=== PATIENT | male | born 1970 | race Caucasian/White ===

== ENCOUNTER 2019-08-06 00:24 | Emergency (ER) | payer MEDICARE ==
[~2019-08-06] VITALS: Ht 157.5 cm; Wt 125.0 kg
--- NOTE | 2019-08-06 00:41 | NUR ---
PT AMB FROM TRIAGE NO ASSIST NEEDED
[2019-08-06] MEDS ORDERED: DEXAMETHASONE 4 MG TABLET PO ONE (01:00)
[2019-08-06] MEDS ORDERED: PIPERACILLIN/TAZO/PMX 4.5GM 100 ML IV ONE (01:00)
[2019-08-06] MEDS ORDERED: DEXAMETHASONE 4 MG TABLET ONE (01:03)
--- NOTE | 2019-08-06 01:15 | NUR ---
THIS IS A 48 YO MALE COMING IN FOR SORE THROAT, DIFFICULTY SWALLOWING AND TALKING STARTING "A FEW DAYS AGO AFTER DOING YU[place]", PATIENT REFERRING TO METH[facility]HETAMINE. PATIENT ABLE TO TALK, BUT SOUNDS GURGLED, ABLE TO EAT AND DRINK. NOTABLE ABCESS NOTED IN BACK OF THROAT, PALE YELLOW DISCOLORATION OF THE TONGUE. A&OX4, SPO2 AND BP MONITORING IN PLACE.
--- NOTE | 2019-08-06 01:25 | NUR ---
PATIENT MEDICATED PER EMAR, ABLE TO SWALLOW PO PILLS AND WATER. WORKIG ON ESTABLISHING PIV ACCESS AT THIS TIME FOR IV ABX
--- NOTE | 2019-08-06 02:02 | NUR ---
VERIFIED WITH GUY COLLINS NO NEED FOR BLOOD CULTURES PRIOR TO ABX ADMIN. IV ABX STARTED AT THIS TIME
[2019-08-06 02:03] VITALS: BP 162/132
--- NOTE | 2019-08-06 02:18 | NUR ---
PATIENT BACK FROM CT
[2019-08-06 02:20] LABS: MEAN CORPUSCULAR HEMOGLOBIN 30.3 pg (27.5-34.5); MEAN CORPUSCULAR HGB CONC 33.8 g/dL (33.2-36.2); MEAN CORPUSCULAR VOLUME 89.5 fL (81-97); MEAN PLATELET VOLUME 8.7 fL (7.4-10.4); PLATELET COUNT 262 x10^3/uL (130-400); RED BLOOD COUNT 4.99 x10^6/uL (4.38-5.82); RED CELL DISTRIBUTION WIDTH 13.3 % (9.4-14.8)
[2019-08-06 02:24] LABS: ANION GAP 8 mmol/L (5-15); CALCIUM 8.5 mg/dL (8.5-10.1); CHLORIDE 99 mmol/L (98-107); CREATININE 0.97 mg/dL (0.7-1.3)
[2019-08-06 02:38] LABS: BASOPHILS # (AUTO) 0.01 x10^3/uL (0-0.1); BASOPHILS % (AUTO) 0 % (0-1); EOSINOPHILS # (AUTO) 0.09 x10^3/uL (0-0.4); EOSINOPHILS % (AUTO) 1 % (1-7); LYMPHOCYTES # (AUTO) 0.78 x10^3/uL (1-3.4); LYMPHOCYTES % (AUTO) 5 % (22-44); MD SCAN; MONOCYTES # (AUTO) 1.64 x10^3/uL (0.2-0.8); MONOCYTES % (AUTO) 11 % (2-9); NEUTROPHILS % (AUTO) 83 % (42-75)
--- NOTE | 2019-08-06 02:51 | NUR ---
REPORT FROM FELICITAS NAPIER, ASSUMING CARE OF PT AT THIS TIME
[2019-08-06] MEDS ORDERED: BENZOCAINE AEROSOL SPRAY 20%, 60ML TP ONE (03:30)
[2019-08-06] MEDS ORDERED: LIDOCAINE 1%, 10ML INFIL ONE (03:30)
[2019-08-06] MEDS ORDERED: LIDOCAINE-MPF 1%, 5ML ONE (03:38)
--- NOTE | 2019-08-06 03:55 | NUR ---
GUY COLLINS AT BEDSIDE FOR I&D
--- NOTE | 2019-08-06 04:20 | NUR ---
WHEN WALKING PT TO D/C DESK, PT PULLED KNIFE FROM POCKET BEHIND RN AND BEGAN TWIRLING IT IN HIS HANDS STATING " THIS IS THE BEST KNIFE CAN YOU SEE IT. THIS KNIFE IS SO FAST TO OPEN AND SHARP." PT INSTRUCTED TO PUT AWAY KNIFE. PT PUT KNIFE AWAY BUT CONTINUES TO TALK ABOUT THE KNIFE AND SHARPNESS WELL ABILITY TO MOVE SWIFTLY WITH IT. SECURITY CALLED
--- NOTE | 2019-08-06 04:22 | NUR ---
Patient/Caregiver given discharge instructions and they have confirmed that they understand the instructions. Patient ambulatory with steady gait.
--- NOTE | 2019-08-06 05:00 | NUR ---
[facility] REPORT FILED ON PT BEHAVIOR DURING DC
[2019-08-06] MEDS ORDERED: OMNIPAQUE 350 MG/ML, 100ML BOTTLE ONE (05:43)
== END 2019-08-06 04:23 | disposition home or self-care (01) ==
LOC: ED 01:27
DX: J36 Peritonsillar abscess (principal); F15.10 Other stimulant abuse, uncomplicated; R00.0 Tachycardia, unspecified; F17.210 Nicotine dependence, cigarettes, uncomplicated; Z72.9 Problem related to lifestyle, unspecified
CPT/HCPCS: 36415; 42700; 70491; 80048; 85025; 86308; 87880; 96365; 99285; 99406; J2543; Q9967

== ENCOUNTER 2020-04-04 22:53 | Emergency (ER) | payer MEDICARE ==
[~2020-04-04] VITALS: Ht 177.8 cm; Wt 125.0 kg
[2020-04-04] MEDS ORDERED: metroNIDAZOLE 500 MG TABLET ONE (23:24)
[2020-04-04] MEDS ORDERED: CEFTRIAXONE 250 MG ONE (23:24)
[2020-04-04] MEDS ORDERED: metroNIDAZOLE 500 MG TABLET PO ONE (23:30)
[2020-04-04] MEDS ORDERED: CEFTRIAXONE 250 MG IM ONE (23:30)
[2020-04-04] MEDS ORDERED: AZITHROMYCIN 500 MG TABLET PO ONE (23:30)
[2020-04-04] MEDS ORDERED: AZITHROMYCIN 500 MG TABLET ONE (23:43)
[2020-04-05 00:11] VITALS: BP 141/96
== END 2020-04-05 00:16 | disposition home or self-care (01) ==
LOC: ED 04-05 00:05
DX: A59.9 Trichomoniasis, unspecified (principal); R10.30 Lower abdominal pain, unspecified; F17.210 Nicotine dependence, cigarettes, uncomplicated; Z76.0 Encounter for issue of repeat prescription
CPT/HCPCS: 96372; 99283; 99406; J0696